=== PATIENT | female | born 1945 | race Caucasian/White ===

== ENCOUNTER 2016-07-13 10:33 | Outpatient (CLI) | payer MEDICARE ==
[2016-07-13 11:18] LABS: Hemoglobin A1c 7.8 % (4.0-6.0)
[2016-07-13 11:30] LABS: Free T4 (Free Thyroxine) 1.02 ng/dL (0.70-1.48); Thyroid Stimulating Hormone 3.2286 uIU/mL (0.35-4.94)
== END 2016-07-13 10:34 | disposition home or self-care (01) ==
LOC: HPCALD 10:33
PROVIDERS: ATTEND Family Medicine
DX: E11.9 Type 2 diabetes mellitus without complications (principal); R94.6 Abnormal results of thyroid function studies
CPT/HCPCS: 36415; 83036; 84439; 84443

== ENCOUNTER 2016-07-13 10:57 | Outpatient (CLI) | payer MEDICARE | END 2016-07-13 10:58 | disposition home or self-care (01) | LOC: BUREKG 10:57 | PROVIDERS: ATTEND Family Medicine | DX: Z01.818 Encounter for other preprocedural examination (principal) ==

== ENCOUNTER 2016-10-13 09:24 | Outpatient (CLI) | payer MEDICARE ==
[2016-10-13 10:28] LABS: ALT (SGPT) 28 U/L (8-55); AST (SGOT) 17 U/L (5-34); Albumin 3.9 g/dL (3.4-4.8); Alkaline Phosphatase 59 U/L (40-150); Anion Gap 14 mmol/L (10-20); BUN (Urea Nitrogen) 28 mg/dL (9.8-20.1); Bilirubin, Total 0.5 mg/dL (0.2-1.2); Calc. Creatinine Clearance 0 mL/min (70-130); Calcium 9.5 mg/dL (7.8-10.44); Carbon Dioxide 25 mmol/L (23-31); Chloride 106 mmol/L (98-107); Cholesterol 125 mg/dl (< 200 Desired); Estimated GFR-MDRD 66; Glucose 167 mg/dL (80-115); HDL Cholesterol 31 mg/dL (>60 Neg Risk); LDL Cholesterol, Calculated 74 mg/dL; Potassium 4.3 mmol/L (3.5-5.1); Protein, Total 6.9 g/dL (6.0-8.3); Sodium 141 mmol/L (136-145); Triglycerides 99 mg/dL (Less than 150)
[2016-10-13 11:12] LABS: #Basophils 0.1 thou/uL (0.0-0.2); #Eosinphils 0.2 thou/uL (0.0-0.7); #Lymphocytes 1.6 thou/uL (1.20-3.40); #Monocytes 0.6 thou/uL (0.11-0.59); #Neutrophils 6.2 thou/uL (1.40-6.50); %Basophils 0.9 % (0.0-1.0); %Eosinophils 2.8 % (0.0-10.0); %Lymphocytes 18.1 % (21.0-51.0); %Neutrophils 71.2 % (42.0-75.0); Hemoglobin 12.2 g/dL (12.0-16.0); Mean Corpuscular HGB CONC 32.3 g/dL (32.0-36.0); Mean Corpuscular Hemoglobin 25.3 pg (27.0-31.0); Mean Corpuscular Volume 78.4 fl (81.0-99.0); Mean Platelet Volume 9.2 fL (7.4-10.4); Platelet Count 205 thou/uL (130-400); White Blood Cell (WBC) Count 8.8 thou/uL (4.8-10.8)
[2016-10-13 12:10] LABS: Hemoglobin A1c 8.1 % (4.0-6.0)
== END 2016-10-13 09:25 | disposition home or self-care (01) ==
LOC: HPCALD 09:24
PROVIDERS: ATTEND Family Medicine
DX: E11.9 Type 2 diabetes mellitus without complications (principal); I10 Essential (primary) hypertension
CPT/HCPCS: 36415; 80053; 80061; 83036; 84443; 85025

== ENCOUNTER 2018-05-17 08:51 | Outpatient (CLI) | payer MEDICARE ==
--- NOTE | 2018-05-17 20:10 | ULT ---
RIGHT UPPER QUADRANT ULTRASOUND 05/17/18 Ultrasonography of the right upper quadrant was performed for evaluation of pain. The liver is upper normal in size, measuring 16.5 cm in oblique sagittal length. No dilated ducts or masses were seen. T he visible portions of the pancreas appear normal. The gallbladder is rather distended, measuring stephen rly 10 cm in length. Nevertheless, no stones or wall thickening were seen within it. The common bile duct is borderline enlarged at 6 to 7 mm in caliber with no sign of intrahepatic ductal dilatation. T he right kidney appears normal and is 12.1 cm long. IMPRESSION: 1. Somewhat large gallbladder but no stones or wall thickening noted. 2. Borderline large diameter of the common bile duct, significance unknown. 3. Hepatic size slightly greater than expected. POS: HOME
== END 2018-05-17 08:52 | disposition home or self-care (01) ==
LOC: BURULT 08:51
PROVIDERS: ATTEND Family Medicine
DX: R10.11 Right upper quadrant pain (principal)
CPT/HCPCS: 76705

== ENCOUNTER 2021-05-19 09:00 | Outpatient (CLI) | payer MEDICARE | END 2021-05-19 09:01 | disposition home or self-care (01) | LOC: BUREKG 09:00 | PROVIDERS: ATTEND Family Medicine | DX: Z01.818 Encounter for other preprocedural examination (principal) | CPT/HCPCS: 71046; 93005; 93010 ==